=== PATIENT | male | born 1965 | race Caucasian/White ===

== ENCOUNTER 2020-05-12 12:16 | Emergency (ER) | payer BC, SELFPAY ==
[2020-05-12 12:38] VITALS: BP 121/78; PULSE 66; RESP 18; TEMP 37; O2SAT 98; BMI 25.7
--- NOTE | 2020-05-12 12:54 | ED_ITS ---
HPI - Extremity Problem General Chief complaint: Extremity Injury, Upper Stated complaint: Rib Pain Time Seen by Provider: 05/12/20 12:54 Source: patient Mode of arrival: ambulatory Limitations: no limitations History of Present Illness HPI Narrative: Otherwise healthy 54-year-old male who presents with complaint of left lateral inferior rib pain as well as left upper abdominal pain after he reach for something and felt like a pulling sensation in that area. In addition to this he does report that he fell from a ladder about 6 ft onto that area 4 weeks ago and afterwards he was evaluated at urgent care but at that time he did not tell about the injury to the abdomen only concern was his right forearm as he was swollen and uncomfortable ?I was pretty sure was broken..... And forgot about the other injury.. He did not suffer any head neck injury. States he did have a bruise at the site and he went away. There is no nausea vomiting or diarrhea. There is no fever. There is no hematuria/rectal bleeding. There is no weight loss or gain. Pain on the right forearm has fully resolved. Pain on the left side was improving until he did this today. Pain Consistency: constant Location: left Associated symptoms: denies other symptoms Related Data Previous Rx's Medication Instructions Recorded cyclobenzaprine 10 mg PO TID PRN #20 tab 05/12/20 Allergies Allergy/AdvReac Type Severity Reaction Status Date / Time No Known Allergies Allergy Verified 05/12/20 12:56 Review of Systems Review of Systems: Constitutional: No Weight loss, No Fever, No Chills, No Night Sweats, No Fatigue, No Malaise ENT/Mouth: No Hearing loss, No Ear Pain, No Nasal Congestion, No Sinus Pain, No Hoarseness, No sore throat, No Rhinorrhea, No Swallowing Difficulty Eyes: No Eye Pain, No Swelling, No Redness, No Foreign Body, No Discharge, No Vision Changes Cardiovascular: No Chest Pain, No SOB, No Dyspnea on Exertion, No Orthopnea, No Edema, No Palpitations Respiratory: No Cough, No Sputum, No Wheezing, No Smoke Exposure, No Dyspnea Gastrointestinal: No Nausea, No Vomiting, No Diarrhea, No Constipation, No Hematochezia, No Melena Genitourinary: no irregular bleeding, No Dysuria, No Urinary Frequency, No Hematuria, No Urinary Incontinence, No Urgency, No Flank Pain, No Urinary Flow Changes, No Hesitancy Musculoskeletal: No joint pain, No Myalgias, No Joint Swelling Skin: No Skin Lesions, No rash Neuro: No Weakness, No Numbness, No Paresthesias, No Loss of Consciousness, No Dizziness, No Headache Psych: No Social Issues Heme/Lymph: No Bruising, No Bleeding,No Lymphadenopathy Endocrine: No Polyuria, No Polydipsia, No Temperature Intolerance Yes all other systems are reviewed and are negative [facility] Past Medical History Attestation statement: The following information was validated with the patient. Medical History (Updated 05/12/20 @ 15:28 by Carlos Reeder NP) No known health problems Social History Social History Alcohol intake: never Smoking Status: Never smoker Use of substances other than those prescribed or required for medical reasons: No Advance Directives: No Advance Directives Information Provided: No Physical Exam Vital Signs: Vital Signs: Vital Signs Temp Pulse Resp BP Pulse Ox 05/12/20 14:00 97.7 F 67 14 121/80 99 05/12/20 12:38 98.6 F 66 18 121/78 98 Body Mass Index 25.7 Reviewed Const: General: cooperative and healthy appearing; No acute distress or intoxicated appearing Nutritional Appearance: average body habitus Orientation/consciousness: patient oriented x3 HENMT: Head: Yes normal to inspection Ears: hearing grossly normal bilaterally Eyes: General: appearance normal, both eyes and all related structures Visual Garza: normal visual garza by confrontation Neck: Neck: Yes normal visual inspection, No positive Brudzinski's sign, No positive Kernig's sign and No tender Thyroid: Thyroid normal Chest: Chest palpation & inspection: normal inspection of the chest Chest/axillae images: 1. Soft tissue tender to palpation. No obvious ecchymosis/open skin area/rash. Resp: Effort & Inspection: normal respiratory effort Cardio: Jugular venous distension: no JVD GI: Inspection: Yes normal to inspection Percussion: Yes normal to percussion Auscultation: normal bowel sounds : General: Yes no CVA tenderness Back/Spine/Pelvis: Back: no CVA tenderness Skin: General skin exam: no rashes or lesions noted Neuro: General: patient oriented x3 Extrem: General: Yes normal to inspection Course Course Course Narrative: Labs overall reassuring. CT findings as noted without acute intra-abdominal process. X-rays negative no acute rib fracture. Incidental findings of Lobulated lesion right lung base, suspicious. Recommend dedicated CT chest with contrast as outpatient. He is patient of Dr. Ruano he will follow up in outpatient basis regarding this. He feels comfortable plan stable for discharge. MDM - Extremity (Nontraumatic) MDM Narrative Medical decision making narrative: Differential diagnosis include but not limited to contusion, muscle strain of the chest wall/abdomen, rib fracture, splenic lac. Lab Data Result diagrams: 05/12/20 13:23 05/12/20 13:22 Labs: Lab Results 05/12/20 05/12/20 05/12/20 Range/Units 13:22 13:23 13:23 WBC 6.1 (4.8-10.8) X10*3/uL RBC 5.06 (4.60-5.80) X10*6/uL Hgb 15.8 (14.0-18.0) g/dl Hct 46.5 (42-52) % MCV 91.9 (80-98) fL MCH 31.2 (27.0-33.0) pg MCHC 34.0 (31.0-36.0) g/dl RDW 12.3 (11.0-16.0) % Plt Count 229 (160-400) X10*3/uL MPV 10.4 (9.4-12.4) fL Immature Gran % (Auto) 0.2 (0.0-0.4) % Neut % (Auto) 68.8 (45-73) % Lymph % (Auto) 17.8 L (20-40) % [place] % (Auto) 10.6 (2-11) % Eos % (Auto) 2.1 (0-4) % Baso % (Auto) 0.5 (0-2) % Lymph # (Auto) 1.1 L (1.2-4.9) X10*3/uL [place] # (Auto) 0.7 (0.1-1.2) X10*3/uL Eos # (Auto) 0.1 (0.0-0.4) X10*3/uL Baso # (Auto) 0.0 (0.0-0.2) X10*3/uL Abs Immat Gran (auto) 0.01 (0.00-0.03) X10*3/uL Absolute Neuts (auto) 4.2 (2.0-8.3) X10*3/uL Absolute Nucleated RBC 0.000 (0.0-0.012) X10*3/uL Nucleated RBC % (auto) 0.0 (0.0-0.2) /100WBC PT 12.0 (10.8-13.0) SEC INR 1.0 (0.9-1.1) APTT 36.0 (24.1-38.0) SEC Sodium 136 (135-145) mmol/L Potassium 4.7 (3.3-5.1) mmol/l Chloride 99 (96-108) mmol/L Carbon Dioxide 29 (22-29) mmol/L Anion Gap 13 (12-20) BUN 21 H (9-16) mg/dL Creatinine 0.97 (0.5-1.4) mg/dL Estim Creat Clear Calc 73.7 Estimated GFR > 60 Random Glucose 109 (60-115) mg/dL Calcium 9.4 (8.4-10.2) mg/dL Total Bilirubin 0.4 (0.0-1.0) mg/dL AST 28 (5-37) U/L ALT 30 (0-40) U/L Alkaline Phosphatase 73 (39-117) U/L Total Protein 7.4 (6.5-8.0) g/dL Albumin 4.8 (3.5-5.0) g/dL Urine Color Urine Appearance Urine pH (5.0-8.0) Ur Specific [place] (1.005-1.025) Urine Protein (NEG-TRACE) MG/DL Urine Glucose (UA) (NEG) MG/DL Urine Ketones (NEG) MG/DL Urine Blood (NEG) Urine Nitrite (NEG) Ur Leukocyte Esterase (NEG) Urine RBC (0) /HPF Urine WBC (0-4) /HPF Ur Squamous Epith Cells /LPF Urine Bacteria /LPF 05/12/20 Range/Units 13:34 WBC (4.8-10.8) X10*3/uL RBC (4.60-5.80) X10*6/uL Hgb (14.0-18.0) g/dl Hct (42-52) % MCV (80-98) fL MCH (27.0-33.0) pg MCHC (31.0-36.0) g/dl RDW (11.0-16.0) % Plt Count (160-400) X10*3/uL MPV (9.4-12.4) fL Immature Gran % (Auto) (0.0-0.4) % Neut % (Auto) (45-73) % Lymph % (Auto) (20-40) % [place] % (Auto) (2-11) % Eos % (Auto) (0-4) % Baso % (Auto) (0-2) % Lymph # (Auto) (1.2-4.9) X10*3/uL [place] # (Auto) (0.1-1.2) X10*3/uL Eos # (Auto) (0.0-0.4) X10*3/uL Baso # (Auto) (0.0-0.2) X10*3/uL Abs Immat Gran (auto) (0.00-0.03) X10*3/uL Absolute Neuts (auto) (2.0-8.3) X10*3/uL Absolute Nucleated RBC (0.0-0.012) X10*3/uL Nucleated RBC % (auto) (0.0-0.2) /100WBC PT (10.8-13.0) SEC INR (0.9-1.1) APTT (24.1-38.0) SEC Sodium (135-145) mmol/L Potassium (3.3-5.1) mmol/l Chloride (96-108) mmol/L Carbon Dioxide (22-29) mmol/L Anion Gap (12-20) BUN (9-16) mg/dL Creatinine (0.5-1.4) mg/dL Estim Creat Clear Calc Estimated GFR Random Glucose (60-115) mg/dL Calcium (8.4-10.2) mg/dL Total Bilirubin (0.0-1.0) mg/dL AST (5-37) U/L ALT (0-40) U/L Alkaline Phosphatase (39-117) U/L Total Protein (6.5-8.0) g/dL Albumin (3.5-5.0) g/dL Urine Color YELLOW Urine Appearance CLEAR Urine pH 6.0 (5.0-8.0) Ur Specific [place] 1.020 (1.005-1.025) Urine Protein NEG (NEG-TRACE) MG/DL Urine Glucose (UA) NEG (NEG) MG/DL Urine Ketones NEG (NEG) MG/DL Urine Blood 1+ H (NEG) Urine Nitrite NEG (NEG) Ur Leukocyte Esterase NEG (NEG) Urine RBC 0-2 (0) /HPF Urine WBC 0 (0-4) /HPF Ur Squamous Epith Cells NONE /LPF Urine Bacteria NONE /LPF Imaging Data CT scan - abdomen: Radiologist's impression: [address] [address] [address] Scan Report Signed Patient: Isidoro Gonzalez LMR#: [id number] : 1965Acct:[id number] Age/Sex: 54 / MADM Date: 05/12/20 Loc: HO.ED Attending Dr: Ordering Physician: Carlos Reeder NP Date of Service: 05/12/20 Procedure(s): CT abdomen pelvis w con Accession Number(s): [id number] cc: Carlos Reeder 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 Status post fall. COMPARISON: None TECHNIQUE: Multidetector volumetric images were obtained from the superior aspect of the liver through the pubic symphysis following administration 85 mL of Omnipaque 350 intravenous contrast. Sagittal and coronal reformatted images were obtained on the technologist's workstation. Oral contrast: No This CT examination was performed using dose optimization techniques as appropriate, variously including the following: *Automated exposure control *Adjustment of mA and/or kV according to patient size (this includes techniques or standardized protocols for targeted exams where dose is matched to indication/reason for exam; i.e. extremities or head) *Use of iterative reconstruction technique DLP: 451 mGy-cm FINDINGS: LUNG BASES: There is platelike atelectasis in the lingula. There is a 1.8 cm lobulated mass right lung base. Heart size is normal. LIVER, GALLBLADDER, AND BILIARY TREE: The liver is normal in size, shape, and attenuation. No focal hepatic lesion or biliary ductal dilatation is present. The gallbladder is unremarkable with no evidence of radiopaque gallstones, gallbladder wall thickening, or obvious pericholecystic inflammatory changes. PANCREAS: Unremarkable. SPLEEN: Unremarkable. ADRENAL GLANDS: Unremarkable. KIDNEYS AND URETERS: The kidneys are normal in size, shape, and attenuation. No hydronephrosis, hydroureter, or calculi seen. No perinephric stranding. There is a 6 mm cyst upper pole left kidney BLADDER: Unremarkable. GASTROINTESTINAL TRACT: There is scattered stool and gas and articular seen throughout the colon without distention or diverticulitis. The small bowel loops are normal caliber. Appendix is normal caliber. ABDOMINAL WALL: No significant hernia is appreciated. LYMPH NODES: Normal. VASCULAR: Unremarkable. PELVIC VISCERA: The prostate gland is normal size. No abnormal pelvic mass or lymph node seen. OSSEOUS STRUCTURES: There is mild ventral spondylosis. No lytic or sclerotic process seen. No visible fracture seen. CT/CT abdomen pelvis w con IMPRESSION: There is no visible fracture or dislocation seen involving the spine of the pelvis. The lower ribs are intact. Diverticulosis without diverticulitis. Lobulated lesion right lung base, suspicious. Recommend dedicated CT chest with contrast as outpatient. Dictated By:JEANINE INGRAM MD Signed By:<Electronically signed by JEANINE INGRAM MD in OV>05/12/20 1509 DD/ 1415 TD/TT: [employer] Dispatcher: [place] Chest x-ray: Radiologist's impression: [address] [address] XRay Report Signed Patient: Isidoro Gonzalez LMR#: [id number] : 1965Acct:[id number] Age/Sex: 54 / MADM Date: 05/12/20 Loc: HO.ED Attending Dr: Ordering Physician: Carlos Reeder NP Date of Service: 05/12/20 Procedure(s): XR ribs LT min 3V w CXR1V Accession Number(s): [id number] cc: Carlos Reeder NP~ EXAMINATION: XR RIBS, LEFT CLINICAL INFORMATION: Trauma. Pain. COMPARISON: None TECHNIQUE: 3 views of the left ribs and one view of the chest were obtained. FINDINGS: Lungs are clear. No consolidation, pneumothorax, or pleural effusion. The cardiomediastinal silhouette and pulmonary vasculature are normal. Osseous structures are unremarkable. Ribs are intact. No fractures are identified. XR/XR ribs LT min 3V w CXR1V IMPRESSION: Unremarkable examination. Dictated By:JUANPABLO WEBB MD Signed By:<Electronically signed by JUANPABLO WEBB MD in OV>05/12/20 1316 DD/ 1257 TD/TT: [employer] Dispatcher: SHARON Discharge Plan Discharge Clinical Impression: Chest wall contusion, Lung nodule Patient Disposition: Home, Self-Care Instructions: Contusion in Adults (ED), Pulmonary Nodules (ED) Additional Instructions: Warm compresses Gentle stretching Medications prescribed Return if any concerns or symptoms otherwise follow up with outpatient basis as discussed Copy CT scan was provided to is very important that you follow-up with your primary care doctor to have the CT scan of her chest Thank you Prescriptions: New cyclobenzaprine 10 mg tablet 10 mg PO TID PRN (Reason: muscle spasm) Qty: 20 RF: 0 Referrals: Ángel Ruano MD [Primary Care Provider] - 2 weeks
--- NOTE | 2020-05-12 12:57 | XR_ITS ---
EXAMINATION: XR RIBS, LEFT CLINICAL INFORMATION: Trauma. Pain. COMPARISON: None TECHNIQUE: 3 views of the left ribs and one view of the chest were obtained. FINDINGS: Lungs are clear. No consolidation, pneumothorax, or pleural effusion. The cardiomediastinal silhouette and pulmonary vasculature are normal. Osseous structures are unremarkable. Ribs are intact. No fractures are identified. XR/XR ribs LT min 3V w CXR1V IMPRESSION: Unremarkable examination.
[2020-05-12] MEDS: 0.9 % Sodium Chloride 500 ML 1000 ML IV (13:35)
[2020-05-12 13:51] LABS: MANUAL DIFF FLAG NO
[2020-05-12 13:53] LABS: Basophils Percent Auto 0.5 % (0-2); Eosinophils Absolute Auto 0.1 X10*3/uL (0.0-0.4); Eosinophils Percent Auto 2.1 % (0-4); Hematocrit 46.5 % (42-52); Hemoglobin 15.8 g/dl (14.0-18.0); Imm Gran Abs Auto 0.01 X10*3/uL (0.00-0.03); Imm Gran Pct Auto 0.2 % (0.0-0.4); Lymphocytes Absolute Auto 1.1 X10*3/uL (1.2-4.9); Lymphocytes Percent Auto 17.8 % (20-40); Mean Corpuscular Hemoglobin 31.2 pg (27.0-33.0); Mean Corpuscular Volume 91.9 fL (80-98); Mean Platelet Volume 10.4 fL (9.4-12.4); Monocytes Absolute Auto 0.7 X10*3/uL (0.1-1.2); Monocytes Percent Auto 10.6 % (2-11); Neutrophils Absolute Auto 4.2 X10*3/uL (2.0-8.3); Neutrophils Percent Auto 68.8 % (45-73); Platelet Count 229 X10*3/uL (160-400); Red Blood Count 5.06 X10*6/uL (4.60-5.80); Red Cell Distribution Width 12.3 % (11.0-16.0); White Blood Count 6.1 X10*3/uL (4.8-10.8)
[2020-05-12 13:54] LABS: Glucose Urine UA NEG (NEG); Leukocyte Esterase Urine NEG (NEG); Nitrite Urine NEG (NEG); Urine Blood 1+ (NEG); Urine Ketones NEG (NEG); Urine Protein NEG (NEG-TRACE)
[2020-05-12 13:55] LABS: Appearance Urine CLEAR; Color Urine YELLOW
[2020-05-12 14:00] VITALS: BP 121/80; PULSE 67; RESP 14; TEMP 36.5; O2SAT 99
--- NOTE | 2020-05-12 14:15 | CT_ITS ---
EXAMINATION: CT ABDOMEN AND PELVIS WITH CONTRAST CLINICAL INFORMATION: Pain. Status post fall. COMPARISON: None TECHNIQUE: Multidetector volumetric images were obtained from the superior aspect of the liver through the pubic symphysis following administration 85 mL of Omnipaque 350 intravenous contrast. Sagittal and coronal reformatted images were obtained on the technologist's workstation. Oral contrast: No This CT examination was performed using dose optimization techniques as appropriate, variously including the following: *Automated exposure control *Adjustment of mA and/or kV according to patient size (this includes techniques or standardized protocols for targeted exams where dose is matched to indication/reason for exam; i.e. extremities or head) *Use of iterative reconstruction technique DLP: 451 mGy-cm FINDINGS: LUNG BASES: There is platelike atelectasis in the lingula. There is a 1.8 cm lobulated mass right lung base. Heart size is normal. LIVER, GALLBLADDER, AND BILIARY TREE: The liver is normal in size, shape, and attenuation. No focal hepatic lesion or biliary ductal dilatation is present. The gallbladder is unremarkable with no evidence of radiopaque gallstones, gallbladder wall thickening, or obvious pericholecystic inflammatory changes. PANCREAS: Unremarkable. SPLEEN: Unremarkable. ADRENAL GLANDS: Unremarkable. KIDNEYS AND URETERS: The kidneys are normal in size, shape, and attenuation. No hydronephrosis, hydroureter, or calculi seen. No perinephric stranding. There is a 6 mm cyst upper pole left kidney BLADDER: Unremarkable. GASTROINTESTINAL TRACT: There is scattered stool and gas and articular seen throughout the colon without distention or diverticulitis. The small bowel loops are normal caliber. Appendix is normal caliber. ABDOMINAL WALL: No significant hernia is appreciated. LYMPH NODES: Normal. VASCULAR: Unremarkable. PELVIC VISCERA: The prostate gland is normal size. No abnormal pelvic mass or lymph node seen. OSSEOUS STRUCTURES: There is mild ventral spondylosis. No lytic or sclerotic process seen. No visible fracture seen. CT/CT abdomen pelvis w con IMPRESSION: There is no visible fracture or dislocation seen involving the spine of the pelvis. The lower ribs are intact. Diverticulosis without diverticulitis. Lobulated lesion right lung base, suspicious. Recommend dedicated CT chest with contrast as outpatient.
[2020-05-12 14:16] LABS: Alanine Aminotransferase 30 U/L (0-40); Albumin Level 4.8 g/dL (3.5-5.0); Alkaline Phosphatase 73 U/L (39-117); Anion Gap 13 (12-20); Aspartate Amino Transferase 28 U/L (5-37); Bilirubin Total 0.4 mg/dL (0.0-1.0); Blood Urea Nitrogen 21 mg/dL (9-16); Calcium 9.4 mg/dL (8.4-10.2); Carbon Dioxide 29 mmol/L (22-29); Chloride 99 mmol/L (96-108); Creatinine Clr Calc Pharmacy 73.7; Estimated Glomerular Filt Rate > 60; Glucose Random 109 mg/dL (60-115); Potassium 4.7 mmol/l (3.3-5.1); Sodium 136 mmol/L (135-145); Total Protein 7.4 g/dL (6.5-8.0)
[2020-05-12 14:20] LABS: RBC Urine 0-2 /HPF (0); WBC Urine 0 /HPF (0-4)
[2020-05-12] MEDS: iohexoL 350 MG/ML 100 ML INFUS..BTL 85 ML IV (14:42)
--- NOTE | 2020-05-12 15:06 | PC.NURSE ---
iv fluids infused w/o apparent incident
== END 2020-05-12 16:06 | disposition home or self-care (01) ==
PROVIDERS: Nurse Practitioner Primary Care; Emergency Provider Emergency Medicine; PCP Internal Medicine
DX: S20.213A Contusion of bilateral front wall of thorax, initial encounter (principal); R07.81 Pleurodynia; R91.1 Solitary pulmonary nodule; R10.9 Unspecified abdominal pain; W11.XXXA Fall on and from ladder, initial encounter; Y93.9 Activity, unspecified; Y92.89 Other specified places as the place of occurrence of the external cause; Y99.9 Unspecified external cause status
CPT/HCPCS: 36415; 71101; 74177; 80053; 81001; 85025; 85610; 85730; 99284; Q9967

== ENCOUNTER 2020-08-02 07:01 | Outpatient (REF) | payer BC, SELFPAY ==
[2020-08-02 07:41] LABS: MANUAL DIFF FLAG NO
[2020-08-02 07:43] LABS: Urine Cytology See Pathology rpt
[2020-08-02 07:51] LABS: Basophils Percent Auto 0.6 % (0-2); Eosinophils Absolute Auto 0.2 X10*3/uL (0.0-0.4); Eosinophils Percent Auto 3.7 % (0-4); Hematocrit 45.8 % (42-52); Hemoglobin 15.4 g/dl (14.0-18.0); Imm Gran Abs Auto 0.01 X10*3/uL (0.00-0.03); Imm Gran Pct Auto 0.2 % (0.0-0.4); Lymphocytes Absolute Auto 1.3 X10*3/uL (1.2-4.9); Mean Corpuscular HGB Conc 33.6 g/dl (31.0-36.0); Mean Corpuscular Volume 92.2 fL (80-98); Mean Platelet Volume 10.3 fL (9.4-12.4); Monocytes Absolute Auto 0.5 X10*3/uL (0.1-1.2); Monocytes Percent Auto 9.9 % (2-11); Neutrophils Absolute Auto 3.4 X10*3/uL (2.0-8.3); Neutrophils Percent Auto 62.6 % (45-73); Platelet Count 210 X10*3/uL (160-400); Red Blood Count 4.97 X10*6/uL (4.60-5.80); Red Cell Distribution Width 12.5 % (11.0-16.0); White Blood Count 5.4 X10*3/uL (4.8-10.8)
[2020-08-02 08:06] LABS: Alanine Aminotransferase 32 U/L (0-40); Albumin Level 4.5 g/dL (3.5-5.0); Alkaline Phosphatase 57 U/L (39-117); Anion Gap 10 (12-20); Aspartate Amino Transferase 24 U/L (5-37); Bilirubin Total 0.4 mg/dL (0.0-1.0); Blood Urea Nitrogen 23 mg/dL (9-16); Calcium 8.9 mg/dL (8.4-10.2); Carbon Dioxide 31 mmol/L (22-29); Chloride 105 mmol/L (96-108); Cholesterol 200 mg/dL; Estimated Glomerular Filt Rate > 60; Glucose Fasting 110 mg/dL (60-99); HDL Cholesterol 61 mg/dL; LDL Cholesterol Calculated 126 mg/dl; Potassium 4.6 mmol/l (3.3-5.1); Sodium 141 mmol/L (135-145); Total Protein 6.6 g/dL (6.5-8.0); Triglycerides 66 mg/dL
[2020-08-02 08:28] LABS: Prostate Specific Antigen Scr 0.77 ng/mL (<0.05-4.0); TSH reflex Free T4 1.14 mIU/mL (0.32-4.0)
[2020-08-02 08:38] LABS: Glucose Urine UA NEG (NEG); Leukocyte Esterase Urine NEG (NEG); Nitrite Urine NEG (NEG); Specific Gravity - Urine 1.025 (1.005-1.025); Urine Blood 1+ (NEG); Urine Ketones NEG (NEG); Urine Protein NEG (NEG-TRACE)
[2020-08-02 08:54] LABS: Appearance Urine CLEAR; Color Urine YELLOW
[2020-08-02 09:19] LABS: Mucus Urine 1+ /LPF; WBC Urine 0-2 /HPF (0-4)
== END 2020-08-02 07:02 | disposition home or self-care (01) ==
LOC: HO.LAB 07:01
PROVIDERS: Visit Provider Internal Medicine
DX: Z00.00 Encounter for general adult medical examination without abnormal findings (principal); I10 Essential (primary) hypertension; E78.00 Pure hypercholesterolemia, unspecified; Z12.5 Encounter for screening for malignant neoplasm of prostate
CPT/HCPCS: 36415; 80053; 80061; 81001; 81003; 84153; 84443; 85025; 88112

== ENCOUNTER 2021-10-17 06:09 | Outpatient (REF) | payer BC, SELFPAY ==
--- NOTE | ~2021-10-17 | XR_ITS ---
EXAMINATION: XR SHOULDER, LEFT CLINICAL INFORMATION: Pain COMPARISON: None TECHNIQUE: AP external rotation, Grashey, scapular Y, and axillary views of the left shoulder. FINDINGS: No fracture or dislocation. The glenohumeral joint is well aligned. The acromioclavicular joint is intact with mild hypertrophic degenerative change. The visualized lung is clear. The visualized ribs are intact. XR/XR shoulder LT min 2V IMPRESSION: Mild degenerative change of the left acromioclavicular joint.
--- NOTE | ~2021-10-17 | XR_ITS ---
EXAMINATION: XR CHEST CLINICAL INFORMATION: Nonspecific finding of the lungs COMPARISON: 05/12/2020 TECHNIQUE: 2 views of the chest were obtained. FINDINGS: The lungs are well expanded. There is no focal consolidation, edema, or effusion. No pneumothorax. The cardiomediastinal silhouette is within normal limits. No acute osseous abnormality. Mild degenerative changes of the spine. XR/XR chest 2V IMPRESSION: Clear lungs.
[2021-10-17 06:34] LABS: MANUAL DIFF FLAG NO
[2021-10-17 07:22] LABS: Basophils Percent Auto 0.8 % (0-2); Eosinophils Absolute Auto 0.1 X10*3/uL (0.0-0.4); Eosinophils Percent Auto 3.1 % (0-4); Hematocrit 45.7 % (42.0-52.0); Hemoglobin 15.7 g/dl (14.0-18.0); Imm Gran Abs Auto 0.01 X10*3/uL (0.00-0.03); Imm Gran Pct Auto 0.3 % (0.0-0.4); Lymphocytes Absolute Auto 1.1 X10*3/uL (1.2-4.9); Lymphocytes Percent Auto 29.4 % (20-40); Mean Corpuscular HGB Conc 34.4 g/dl (31.0-36.0); Mean Corpuscular Hemoglobin 31.5 pg (27.0-33.0); Mean Corpuscular Volume 91.6 fL (80.0-98.0); Mean Platelet Volume 10.4 fL (9.4-12.4); Monocytes Absolute Auto 0.6 X10*3/uL (0.1-1.2); Monocytes Percent Auto 14.6 % (2-11); Neutrophils Percent Auto 51.8 % (45-73); Platelet Count 216 X10*3/uL (160-400); Red Blood Count 4.99 X10*6/uL (4.60-5.80); White Blood Count 3.8 X10*3/uL (4.8-10.8)
[2021-10-17 07:23] LABS: Appearance Urine CLEAR; Color Urine YELLOW; Glucose Urine UA NEG (NEG); Leukocyte Esterase Urine NEG (NEG); Nitrite Urine NEG (NEG); Specific Gravity - Urine 1.025 (1.005-1.025); UACC Culture Trigger NO; Urine Blood 1+ (NEG); Urine Ketones NEG (NEG); Urine Protein NEG (NEG-TRACE)
[2021-10-17 07:52] LABS: Alanine Aminotransferase 44 U/L (0-40); Albumin Level 4.4 g/dL (3.5-5.0); Alkaline Phosphatase 58 U/L (39-117); Anion Gap 10 (12-20); Aspartate Amino Transferase 32 U/L (5-37); Bilirubin Total 0.8 mg/dL (0.0-1.0); Blood Urea Nitrogen 21 mg/dL (9-16); Calcium 9.7 mg/dL (8.4-10.2); Carbon Dioxide 29 mmol/L (22-29); Chloride 104 mmol/L (96-108); Cholesterol 219 mg/dL; Estimated Glomerular Filt Rate > 60; Glucose Fasting 98 mg/dL (60-99); HDL Cholesterol 64 mg/dL; LDL Cholesterol Calculated 143 mg/dl; Potassium 4.9 mmol/L (3.3-5.1); Sodium 138 mmol/L (135-145); Total Protein 6.5 g/dL (6.5-8.0); Triglycerides 60 mg/dL
[2021-10-17 07:56] LABS: Mucus Urine TRACE /LPF; WBC Urine 0-2 /HPF (0-4)
[2021-10-17 08:17] LABS: Prostate Specific Antigen Scr 0.54 ng/mL (<0.05-4.0)
== END 2021-10-17 06:10 | disposition home or self-care (01) ==
LOC: HO.LAB 06:09
PROVIDERS: PCP Internal Medicine; Visit Provider Internal Medicine
DX: Z00.00 Encounter for general adult medical examination without abnormal findings (principal); Z12.5 Encounter for screening for malignant neoplasm of prostate; R91.8 Other nonspecific abnormal finding of lung field; M25.512 Pain in left shoulder; E55.9 Vitamin D deficiency, unspecified
CPT/HCPCS: 36415; 71046; 73030; 80053; 80061; 81001; 82306; 84153; 84443; 85025

== ENCOUNTER 2022-10-06 16:46 | Outpatient (AMB) | payer BC, SELFPAY ==
--- NOTE | 2022-10-06 16:55 | A.OFFPC_ITS ---
<Statement entered by Aleah Zhu MD - 11/19/24 15:12> This note has been administratively?closed. 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 Accompanied by: Self / Same As Patient Allergies No Known Allergies Allergy (Verified 10/06/22 17:09) Medication List - Last Reconciled 10/06/22 by Ángel Ruano MD No Known Home Meds Tobacco use date assessed: 10/06/22 HPI Annual PE HPI Details Patient comes in today for his annual physical examination States that he has been feeling depressed for the past 10 months Relates that this is mostly due to his 4 y/o granddaughter currently suffering from a rare form of cancer States that she is not doing well in terms of response to treatment He denies any headaches or dizziness Denies any chest pains, no shortness of breath No nausea/vomiting, no abdominal pain States that he has been taking OTC laxatives at night to help regulate his bowel movements Denies any acute urinary symptoms Has been taking some low dose edible marijuana at night to help him sleep Had his screening colonoscopy done back in 2016; will be due for repeat colonoscopy in 10 years (2026) [facility] Medical History (Updated 10/07/22 @ 03:30 by Ángel Ruano MD) Constipation Hematuria, microscopic Overweight (BMI 25.0-29.9) Pure hypercholesterolemia Surgical History History of colonoscopy History of hand surgery History of inguinal hernia repair Family History Father No problems noted. Mother Hypertension Social History Housing: House Alcohol intake: former Patient Tobacco Use Status: Former Tobacco user e-Cigarette/Vaping Use: Never Used Second Hand Smoke Exposure: Yes service: No Current occupational status: employed Questionnaire PHQ-9 Over the last 2 weeks, how often have you been bothered by any of the following problems? 1. Little interest or pleasure in doing things: several days 2. Feeling down, depressed, or hopeless: not at all 3. Trouble falling or staying asleep, or sleeping too much: several days 4. Feeling tired or having little energy: not at all 5. Poor appetite or overeating: not at all 6. Feeling bad about yourself - or that you are a failure or have let yourself or your family down: not at all 7. Trouble concentrating on things, such as reading the newspaper or watching television: not at all 8. Moving or speaking so slowly that other people could have noticed. Or the opposite - being so fidgety or restless that you have been moving around a lot more than usual: not at all 9. Thoughts that you would be better off or of hurting yourself in some way: not at all Total score: 2 Depression Screening Interpretation: Positive Depression Screening Follow-up: Declines treatment 00388 - PHQ-9 Billing: Yes Source: Developed by Drs. Isidoro Schuler, Lynn Galarza, Swapnil Bates and colleagues, with an educational polina from [employer]. Thrive Questionnaire Declines Thrive assessment: No Date Thrive assessed: 10/04/21 I am a: Patient What is your living situation today?: I have a steady place to live Within the past 12 months, did the food you bought not last and you didn't have the money to get more?: Never true Within the past 12 months, did you worry whether your food would run out before you got money to buy more?: Never true Do you have trouble paying for medicines?: No Do you have trouble getting transportation to medical appointments?: No Do you have trouble paying your heating and electricity bill?: No Do you have trouble taking care of your child, family member or friend?: No Do you have trouble with day-to-day activities such as bathing, preparing meals, shopping, managing finances, etc.?: No Are you currently unemployed and looking for a job?: No Are you interested in more education?: No Currently or been in a relationship where the following occur: no concerns reported AUDIT C Alcohol Use Questionnaire (AUDIT-C) 1. How often do you have a drink containing alcohol?: Never 3. How often do you have six or more drinks on one occasion?: Never Total Score: 0 Score Reviewed/Action Taken: Yes GATO-7 AMB Questionnaire GATO-7 Date GATO - 7 assessed: 10/06/22 Feeling nervous, anxious, or on edge: 1 = Several days Not being able to stop or control worryin = Several days Worrying too much about different things: 1 = Several days Trouble relaxin = Several days Being so restless that it is hard to sit still: 1 = Several days Becoming easily annoyed or irritable: 0 = Not at all Feeling afraid as if something awful might happen: 1 = Several days Total GATO-7 score (0-4 normal; 5-9 mild; 10-14 moderate; 15-21 severe): 6 Source: Developed by Drs. Isidoro Schuler, Lynn Galarza, Swapnil Bates and colleagues, with an educational polina from [employer]. Review of Systems Const Denies chills, Reports difficulty sleeping (at times; using low dose edible marijuana when needed), Denies fatigue, Denies fever(s), Denies headache(s) and Denies malaise Eyes Denies blurry vision, Denies change in vision, Denies irritation and Denies itchy eyes ENT Denies dysphagia, Denies dizziness, Denies otalgia, Denies headache(s), Denies nasal congestion, Denies neck pain, Denies odynophagia and Denies sore throat Card Denies chest pain, Denies rapid heart rate, Denies irregular heart rhythm, Denies palpitations and Denies dyspnea Resp Denies chest congestion, Denies cough, Denies dyspnea and Denies wheezing GI Denies abdominal pain, Denies bloating, Denies change in bowel habits, Denies constipation, Denies dysphagia, Denies heartburn, Denies diarrhea, Denies nausea, Denies odynophagia and Denies vomiting Denies hematuria, Denies difficulty urinating, Denies dysuria, Denies testicular mass, Denies testicular pain, Denies urinary frequency, Denies urinary incontinence and Denies urinary urgency Musc Denies back pain, Denies arthralgias, Denies joint swelling, Denies muscle weakness and Denies neck pain Skin/Breast Denies change in pigmentation, Denies lesions, Denies rash and Denies unusual bruising Neuro Denies dizziness, Denies headache(s) and Denies paresthesias Psych Reports depression Endo Denies fatigue and Denies palpitations Aller/Immun Denies itchy eyes and Denies wheezing Physical exam (Primary Care) Vital Signs: Last Vital Signs Temp 97.3 F 10/06/22 16:56 Pulse 87 10/06/22 16:56 BP 122/76 10/06/22 16:56 Pulse Ox 99 10/06/22 16:56 Oxygen Delivery Method Room Air 10/06/22 16:56 BMI result Body Mass Index 26.4 Tobacco/Smoking Status: Tobacco use Status Tobacco use date assessed 10/06/22 10/06/22 16:59 Patient Tobacco Use Status Former Tobacco user 10/06/22 16:59 e-Cigarette/Vaping Use Never Used 10/06/22 16:59 PHQ-9: PHQ-9 Score PHQ-9: Total score 2 10/06/22 21:35 Depression Screening Interpretation: Positive Depression Screening Follow-up: Declines treatment Thrive Assessment: Date of Thrive Assessment Date Thrive assessed 10/04/21 10/06/22 16:59 Currently or been in a relationship where the following occur: no concerns reported Const General: no acute distress, alert and awake Orientation/consciousness: patient oriented x3 HENMT Head: Yes normocephalic and Yes atraumatic Ears: external ears normal, TM's normal bilaterally and EAC's normal General nose exam: No nasal discharge present Face and sinus: Yes normal facial exam and Yes sinuses nontender Teeth and gingiva: dentition normal Throat: Yes posterior oropharynx normal and Yes tonsils normal (no TP congestion) Eyes Eyelids: Yes eyelids normal Conjunctivae: conjunctivae normal Pupils: Equal, round and reactive pupils present EOM: EOMs intact bilaterally Neck Neck: Yes no lymphadenopathy and Yes supple Thyroid: Thyroid normal Resp Auscultation: clear to auscultation bilaterally, no rales and no wheezes Cardio Rate: regular rate Rhythm: regular rhythm Heart sounds: no murmurs GI Palpation (GI): Soft to palpation, nontender and No hepatosplenomegaly present Auscultation: normal bowel sounds General: Yes no CVA tenderness Back/Spine/Pelvis Back: no CVA tenderness Thoracic/Lumbar Spine: thoracic and lumbar spine normal to inspection Skin Lesions: no lesions Rashes: no rashes Neuro General: patient oriented x3, moves all extremities, no focal motor deficits and CN's II-XI intact bilaterally Cranial nerves: Yes Equal, round and reactive pupils present Cognition (Neuro): normal cognition Gait exam (Neuro): Normal gait present Extrem General: Yes no clubbing, cyanosis or edema Assessment and Plan Assessment & Plan (1) Annual physical exam: Code(s): Z00.00 - Encounter for general adult medical examination without abnormal findings Plan: Check labs Is up-to-date with his cancer screening - will be due for repeat colonoscopy in 2026 (2) Pure hypercholesterolemia: Code(s): E78.00 - Pure hypercholesterolemia, unspecified Plan: Reinforced low cholesterol diet Will recheck fasting lipids for follow up (3) Constipation: Code(s): K59.00 - Constipation, unspecified Qualifiers: Constipation type: unspecified constipation type Qualified Code(s): K59.00 - Constipation, unspecified Plan: Controlled Reinforced increased oral fluids and dietary fiber Takes OTC fiber supplements when needed (4) Depression: Code(s): F32.A - Depression, unspecified Qualifiers: Depression Type: reactive depression Qualified Code(s): F32.9 - Major depressive disorder, single episode, unspecified Plan: Is mostly related to his granddaughter being diagnosed with a rare form of cancer and her poor response to treatment lately States that he is able to manage and does not think he needs to be referred for counseling or start taking any Rx - feels that he has a good support system with his family and friends Is advised that he can call any time if he ever feels he needs help or would like to see or talk to somebody (5) Overweight (BMI 25.0-29.9): Code(s): E66.3 - Overweight Plan: Reinforced diet/exercise as tolerated/lose weight Plan To return in 1 year for his next annual physical examination Orders: Orders Comprehensive [place]. Panel Fast 10/06/22 E78.00 - Pure hypercholesterolemia, unspecified, Z00.00 - Encounter for general adult medical examination without abnormal findings Lipid Panel 10/06/22 E78.00 - Pure hypercholesterolemia, unspecified, Z00.00 - Encounter for general adult medical examination without abnormal findings Prostate Specific Antigen Scr 10/06/22 Z00.00 - Encounter for general adult medical examination without abnormal findings TSH reflex Free T4 10/06/22 E78.00 - Pure hypercholesterolemia, unspecified, Z00.00 - Encounter for general adult medical examination without abnormal findings Vitamin D 25-OH Total 10/06/22 E55.9 - Vitamin D deficiency, unspecified, Z00.00 - Encounter for general adult medical examination without abnormal findings Complete Blood Count Auto Diff 10/06/22 Z00.00 - Encounter for general adult medical examination without abnormal findings UA CC w/rflx Micro + Cult 10/06/22 R30.0 - Dysuria, Z00.00 - Encounter for general adult medical examination without abnormal findings Coding Level of Care Code Est Pt Prev Care 40-64y(68996) Diagnoses Annual physical exam Z00.00 Pure hypercholesterolemia E78.00 Constipation K59.00 Constipation type: unspecified constipation type Depression F32.9 Depression Type: reactive depression Overweight (BMI 25.0-29.9) E66.3
[2022-10-06 16:56] VITALS: BP 122/76; PULSE 87; TEMP 36.3; O2SAT 99; BMI 26.4
== END 2022-10-06 17:19 | disposition home or self-care (01) ==
LOC: HO.HMGH 16:46
PROVIDERS: PCP Internal Medicine; Visit Provider Internal Medicine
DX: Z00.00 Encounter for general adult medical examination without abnormal findings (principal); E78.00 Pure hypercholesterolemia, unspecified; K59.00 Constipation, unspecified; F32.9 Major depressive disorder, single episode, unspecified; E66.3 Overweight
CPT/HCPCS: 99396; 99499

== ENCOUNTER 2022-10-11 06:24 | Outpatient (REF) | payer BC, SELFPAY ==
[2022-10-11 06:33] LABS: MANUAL DIFF FLAG NO
[2022-10-11 07:49] LABS: Appearance Urine Clear; Color Urine Yellow; Glucose Urine UA Negative (Negative); Leukocyte Esterase Urine Negative (Negative); Nitrite Urine Negative (Negative); PH 5.5 (5.0-9.0); Specific Gravity - Urine 1.025 (1.005-1.025); UMIC TRIGGER UACC YES; Urine Blood Trace (Negative); Urine Ketones Negative (Negative); Urine Protein Negative (Neg-Trace)
[2022-10-11 07:54] LABS: Bacteria Urine None Seen (None Seen); Hyaline Casts Urine 0-2 /LPF (0-2); RBC Urine 0-2 /HPF (0-2); Squamous Epithelial Cell Urine 0-2 /HPF (0-2); WBC Urine 0-5 /HPF (0-5)
[2022-10-11 08:22] LABS: Basophils Percent Auto 0.8 % (0-2); Eosinophils Absolute Auto 0.1 X10*3/uL (0.0-0.4); Eosinophils Percent Auto 2.6 % (0-4); Hematocrit 46.1 % (42.0-52.0); Hemoglobin 15.4 g/dl (14.0-18.0); Imm Gran Abs Auto 0.01 X10*3/uL (0.00-0.03); Imm Gran Pct Auto 0.3 % (0.0-0.4); Lymphocytes Absolute Auto 1.2 X10*3/uL (1.2-4.9); Lymphocytes Percent Auto 31.7 % (20-40); Mean Corpuscular HGB Conc 33.4 g/dl (31.0-36.0); Mean Corpuscular Volume 92.8 fL (80.0-98.0); Mean Platelet Volume 10.8 fL (9.4-12.4); Monocytes Absolute Auto 0.5 X10*3/uL (0.1-1.2); Monocytes Percent Auto 13.5 % (2-11); Neutrophils Percent Auto 51.1 % (45-73); Platelet Count 200 X10*3/uL (160-400); Red Blood Count 4.97 X10*6/uL (4.60-5.80); Red Cell Distribution Width 13.1 % (11.0-16.0); White Blood Count 3.9 X10*3/uL (4.8-10.8)
[2022-10-11 08:40] LABS: Alanine Aminotransferase 41 U/L (0-40); Albumin Level 4.3 g/dL (3.5-5.0); Alkaline Phosphatase 64 U/L (39-117); Anion Gap 11 (12-20); Aspartate Amino Transferase 25 U/L (5-37); Bilirubin Total 0.5 mg/dL (0.0-1.0); Blood Urea Nitrogen 22 mg/dL (9-16); Calcium 9.3 mg/dL (8.4-10.2); Carbon Dioxide 28 mmol/L (22-29); Chloride 109 mmol/L (96-108); Cholesterol 204 mg/dL; Estimated Glomerular Filt Rate > 60; Glucose Fasting 107 mg/dL (60-99); HDL Cholesterol 65 mg/dL; LDL Cholesterol Calculated 125 mg/dl; Potassium 4.6 mmol/L (3.3-5.1); Sodium 143 mmol/L (135-145); Total Protein 6.3 g/dL (6.5-8.0); Triglycerides 73 mg/dL
[2022-10-11 08:47] LABS: Prostate Specific Antigen Scr 0.88 ng/mL (<0.05-4.0); TSH reflex Free T4 1.47 uIU/mL (0.32-4.0); Vitamin D 25-OH Total 34.9 ng/mL (>30)
== END 2022-10-11 06:25 | disposition home or self-care (01) ==
LOC: HO.LAB 06:24
PROVIDERS: PCP Internal Medicine; Visit Provider Internal Medicine
DX: Z00.00 Encounter for general adult medical examination without abnormal findings (principal); Z12.5 Encounter for screening for malignant neoplasm of prostate; E55.9 Vitamin D deficiency, unspecified; E78.00 Pure hypercholesterolemia, unspecified
CPT/HCPCS: 36415; 80053; 80061; 81001; 82306; 84153; 84443; 85025

== ENCOUNTER 2023-06-11 16:39 | Outpatient (AMB) | payer BC, SELFPAY ==
[2023-06-11 16:40] VITALS: BP 116/78; PULSE 59; O2SAT 97; BMI 26.1
--- NOTE | 2023-06-11 16:40 | A.OFFPC_ITS ---
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 Accompanied by: Self / Same As Patient Allergies No Known Allergies Allergy (Verified 06/11/23 17:20) Medication List - Last Reconciled 06/11/23 by Ángel Ruano MD No Known Home Meds Tobacco use date assessed: 06/11/23 Dental Screening Dental Screen Date: 06/11/23 Did you have a dental visit in the last 12 months?: Yes Did you have a dental problem in the last 6 months where you did not have access to dental care?: No Was dental information given to patient?: Patient has dentist HPI f/u on fmla paperwork HPI Details Patient comes in today for his follow up visit States that he is still feeling depressed (going on for about a year now) States that a large part of this is due to his 4 y/o granddaughter who recently from a rare form of rhabdomyosarcoma although he states that his depression seems to be slowly easing up lately He is recently also suspecting that he may have ADHD, as he feels that he's been having trouble focusing lately on most everything that he does Relates that he did not really have any trouble keeping up when he was going to school in the past but recalls struggling with reading comprehension often Would like to see if he can be referred for evaluation for ADHD or any other potential issues related to this States that he will also need new FMLA forms filled out to allow him to take time off from work when he needs to Adds that he will be taking some time off and going down to [place] for about 6 weeks - will be leaving at the end of July 2023 States that he is going to be using his sick leave for the time that he will be away and will need his FMLA forms filled out [place] He currently denies any headaches or dizziness Denies any chest pains, no shortness of breath No nausea/vomiting, no abdominal pain States that he has been taking OTC laxatives at night to help regulate his bowel movements He continues to take some low dose edible marijuana at night when needed to help him sleep [facility] Medical History Overweight (BMI 25.0-29.9) Hematuria, microscopic Constipation Pure hypercholesterolemia Surgical History History of inguinal hernia repair History of colonoscopy History of hand surgery Family History Father No problems noted. Mother Hypertension Housing: House Alcohol intake: former Patient Tobacco Use Status: Former Tobacco user e-Cigarette/Vaping Use: Never Used Second Hand Smoke Exposure: Yes service: No Current occupational status: employed Cognitive needs: No Hearing needs: No Vision needs: No Questionnaire PHQ-9 Over the last 2 weeks, how often have you been bothered by any of the following problems? 1. Little interest or pleasure in doing things: several days 2. Feeling down, depressed, or hopeless: not at all 3. Trouble falling or staying asleep, or sleeping too much: several days 4. Feeling tired or having little energy: not at all 5. Poor appetite or overeating: not at all 6. Feeling bad about yourself - or that you are a failure or have let yourself or your family down: not at all 7. Trouble concentrating on things, such as reading the newspaper or watching television: not at all 8. Moving or speaking so slowly that other people could have noticed. Or the opposite - being so fidgety or restless that you have been moving around a lot more than usual: not at all 9. Thoughts that you would be better off or of hurting yourself in some way: not at all Total score: 2 Depression Screening Interpretation: Positive Depression Screening Follow-up: Existing condition and Declines treatment Depression Screening Done: Yes 76234 - PHQ-9 Billing: Yes Source: Developed by Drs. Isidoro Schuler, Lynn Galarza, Swapnil Bates and colleagues, with an educational polina from [employer]. Thrive Questionnaire Date Thrive assessed: 06/11/23 I am a: Patient What is your living situation today?: I have a steady place to live Within the past 12 months, did the food you bought not last and you didn't have the money to get more?: Never true Within the past 12 months, did you worry whether your food would run out before you got money to buy more?: Never true Do you have trouble paying for medicines?: No Do you have trouble getting transportation to medical appointments?: No Do you have trouble paying your heating and electricity bill?: No Do you have trouble taking care of your child, family member or friend?: No Do you have trouble with day-to-day activities such as bathing, preparing meals, shopping, managing finances, etc.?: No Are you currently unemployed and looking for a job?: No Are you interested in more education?: No Please select the resources that you would like help with: None Currently or been in a relationship where the following occur: no concerns reported AUDIT C Alcohol Use Questionnaire (AUDIT-C) 1. How often do you have a drink containing alcohol?: Never 3. How often do you have six or more drinks on one occasion?: Never Total Score: 0 Score Reviewed/Action Taken: Yes GATO-7 AMB Questionnaire GATO-7 Date GATO - 7 assessed: 06/11/23 Feeling nervous, anxious, or on edge: 1 = Several days Not being able to stop or control worryin = Several days Worrying too much about different things: 1 = Several days Trouble relaxin = Several days Being so restless that it is hard to sit still: 1 = Several days Becoming easily annoyed or irritable: 0 = Not at all Feeling afraid as if something awful might happen: 1 = Several days Total GATO-7 score (0-4 normal; 5-9 mild; 10-14 moderate; 15-21 severe): 6 Source: Developed by Drs. Isidoro Schuler, Lynn Galarza, Swapnil Bates and colleagues, with an educational polina from [employer]. Review of Systems Const Reports difficulty sleeping (at times; using low dose edible marijuana when needed), Denies fatigue, Denies fever(s) and Denies headache(s) ENT Denies dysphagia, Denies dizziness, Denies otalgia, Denies headache(s), Denies neck pain, Denies odynophagia and Denies sore throat Card Denies chest pain, Denies rapid heart rate, Denies irregular heart rhythm, Denies palpitations and Denies dyspnea Resp Denies cough, Denies dyspnea and Denies wheezing GI Denies abdominal pain, Denies constipation, Denies dysphagia, Denies heartburn, Denies diarrhea, Denies nausea, Denies odynophagia and Denies vomiting Denies difficulty urinating, Denies dysuria and Denies urinary frequency Musc Denies back pain and Denies neck pain Skin/Breast Denies rash Neuro Denies dizziness, Denies headache(s) and Denies memory loss Psych Reports depression, Reports difficulty concentrating, Denies auditory hallucinations and Denies memory loss Endo Denies fatigue and Denies palpitations Aller/Immun Denies wheezing Physical exam (Primary Care) Vital Signs: Last Vital Signs Pulse 59 06/11/23 16:40 BP 116/78 06/11/23 16:40 Pulse Ox 97 06/11/23 16:40 Oxygen Delivery Method Room Air 06/11/23 16:40 BMI result Body Mass Index 26.1 Tobacco/Smoking Status: Tobacco use Status Tobacco use date assessed 06/11/23 06/11/23 16:42 Patient Tobacco Use Status Former Tobacco user 06/11/23 16:42 e-Cigarette/Vaping Use Never Used 06/11/23 16:42 PHQ-9: PHQ-9 Score PHQ-9: Total score 2 06/11/23 17:26 Depression Screening Interpretation: Positive Depression Screening Follow-up: Existing condition and Declines treatment Thrive Assessment: Date of Thrive Assessment Date Thrive assessed 06/11/23 06/11/23 16:42 Currently or been in a relationship where the following occur: no concerns reported Const General: no acute distress and alert HENMT Ears: TM's normal bilaterally and EAC's normal Throat: Yes posterior oropharynx normal and Yes tonsils normal (no TP congestion) Neck Neck: Yes no lymphadenopathy and Yes supple Thyroid: Thyroid normal Resp Auscultation: clear to auscultation bilaterally, no rales and no wheezes Cardio Rate: regular rate Rhythm: regular rhythm Heart sounds: no murmurs GI Palpation (GI): Soft to palpation and nontender Auscultation: normal bowel sounds General: Yes no CVA tenderness Back/Spine/Pelvis Back: no CVA tenderness Thoracic/Lumbar Spine: thoracic and lumbar spine normal to inspection Skin Rashes: no rashes Extrem General: Yes no clubbing, cyanosis or edema Assessment and Plan Assessment & Plan (1) Pure hypercholesterolemia: Code(s): E78.00 - Pure hypercholesterolemia, unspecified Plan: Patient is advised that his cholesterol levels back in September 2022 have improved slightly from his last year's numbers Reinforced low cholesterol diet (2) Constipation: Code(s): K59.00 - Constipation, unspecified Qualifiers: Constipation type: unspecified constipation type Qualified Code(s): K59.00 - Constipation, unspecified Plan: Controlled Reinforced increased oral fluids and dietary fiber States that he takes OTC fiber supplements when needed (3) Difficulty concentrating: Code(s): R41.840 - Attention and concentration deficit Plan: Per request, will refer him to the [facility] for neuropsychiatry evaluation and to help assess if he has ADD/ADHD or not (4) Depression: Code(s): F32.A - Depression, unspecified Qualifiers: Depression Type: reactive depression Qualified Code(s): F32.9 - Major depressive disorder, single episode, unspecified Plan: Is mostly related to his granddaughter being diagnosed with and subsequently passing away recently from a rare form of cancer (rhabdomyosarcoma) States that he has been able to manage this and does not think he needs to be referred for counseling or start on any Rx - feels that he has a good support system with his family and friends Is advised again that he can call any time if he ever feels he needs help or would like to see or talk to somebody (5) Overweight (BMI 25.0-29.9): Code(s): E66.3 - Overweight Plan: Reinforced diet/exercise as tolerated/lose weight Plan To return as scheduled in September 2023 for his next annual physical examination Patient is reminded to try to get his labs done before he comes in for his annual physical exam in September 2019 Orders: Orders Comprehensive [place]. Panel Fast 09/28/23 Z00.00 - Encounter for general adult medical examination without abnormal findings Prostate Specific Antigen 09/28/23 N40.0 - Benign prostatic hyperplasia without lower urinary tract symptoms, Z00.00 - Encounter for general adult medical examination without abnormal findings Vitamin D 25-OH Total 09/28/23 E55.9 - Vitamin D deficiency, unspecified, Z00.00 - Encounter for general adult medical examination without abnormal findings Complete Blood Count Auto Diff 09/28/23 Z00.00 - Encounter for general adult medical examination without abnormal findings Lipid Panel 09/28/23 E78.00 - Pure hypercholesterolemia, unspecified, Z00.00 - Encounter for general adult medical examination without abnormal findings TSH reflex Free T4 09/28/23 E78.00 - Pure hypercholesterolemia, unspecified, Z00.00 - Encounter for general adult medical examination without abnormal findings UA CC w/rflx Micro + Cult 09/28/23 R30.0 - Dysuria, Z00.00 - Encounter for general adult medical examination without abnormal findings Referrals Neuropsychiatry Referral F32.A - Depression, unspecified, R41.840 - Attention and concentration deficit Coding Level of Care Code Est Pt Level 4 (63220) Diagnoses Pure hypercholesterolemia E78.00 Constipation, unspecified constipation type K59.00 Constipation type: unspecified constipation type Difficulty concentrating R41.840 Reactive depression F32.9 Depression Type: reactive depression Overweight (BMI 25.0-29.9) E66.3
== END 2023-06-11 17:34 | disposition home or self-care (01) ==
PROVIDERS: PCP Internal Medicine; Visit Provider Internal Medicine
DX: E78.00 Pure hypercholesterolemia, unspecified (principal); K59.00 Constipation, unspecified; R41.840 Attention and concentration deficit; F32.9 Major depressive disorder, single episode, unspecified; E66.3 Overweight; Z68.26 Body mass index [BMI] 26.0-26.9, adult
CPT/HCPCS: 99214

== ENCOUNTER 2023-10-11 10:03 | Outpatient (AMB) | payer BC, SELFPAY ==
--- NOTE | 2023-10-11 10:13 | A.OFFPC_ITS ---
Vital Signs 10/11/23 10:15 Height 5 ft 4 in Weight 149 lb 2 oz BMI 25.6 BP 120/72 Blood Pressure Location Lt brachial Position Sitting Pulse 68 Pulse Source Pulse Oximeter Pulse Oximetry (%) 95 Oxygen Delivery Method Room Air Intake Visit Reasons: PE Intake Note: Patient is here today for a physical. 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: Not Required per policy Accompanied by: Self / Same As Patient Allergies No Known Allergies Allergy (Verified 10/11/23 10:15) Medication List - Last Reconciled 10/11/23 by Ángel Ruano MD No Known Home Meds Tobacco use date assessed: 10/11/23 Dental Screening Dental Screen Date: 10/11/23 Did you have a dental visit in the last 12 months?: Yes Did you have a dental problem in the last 6 months where you did not have access to dental care?: No Was dental information given to patient?: Patient has dentist HPI PE HPI Details Patient comes in today for his annual physical examination States that he has been experiencing increased pain over his left lower back and left shoulder lately He had some water problem in his basement a couple of months ago and was using a shop vac to clean up the water and was carrying the water bucket up and down the basement stairs repeatedly to get rid of the water as he does not have a sink in the basement and thinks that this likely led to his current back issues Thinks that his left shoulder pain is likely from exercising too much and states that he has backed off on his exercises lately while his shoulder is still bothering him States that he feels okay otherwise He denies any headaches or dizziness Denies any chest pains, no shortness of breath No nausea/vomiting, no abdominal pain States that he still takes some OTC laxatives at night to help regulate his bowel movements when needed Denies any acute urinary symptoms He is also still taking some low dose edible marijuana at night sometimes to help him sleep He has not been able to get his labs done yet - will try to get them done tomorrow Had his screening colonoscopy done back in 2016; will be due for repeat colonoscopy in 10 years (2026) [facility] Medical History Overweight (BMI 25.0-29.9) Hematuria, microscopic Constipation Pure hypercholesterolemia Surgical History History of inguinal hernia repair History of colonoscopy History of hand surgery Family History Father Substance use disorder Mother Hypertension Social History Housing: House Alcohol intake: former Patient Tobacco Use Status: Former Tobacco user e-Cigarette/Vaping Use: Never Used Second Hand Smoke Exposure: Yes service: No Current occupational status: employed Cognitive needs: No Hearing needs: No Vision needs: Yes (Reading glasses) Questionnaire PHQ-9 Over the last 2 weeks, how often have you been bothered by any of the following problems? 1. Little interest or pleasure in doing things: not at all 2. Feeling down, depressed, or hopeless: not at all 3. Trouble falling or staying asleep, or sleeping too much: not at all 4. Feeling tired or having little energy: not at all 5. Poor appetite or overeating: not at all 6. Feeling bad about yourself - or that you are a failure or have let yourself or your family down: not at all 7. Trouble concentrating on things, such as reading the newspaper or watching television: not at all 8. Moving or speaking so slowly that other people could have noticed. Or the opposite - being so fidgety or restless that you have been moving around a lot more than usual: not at all 9. Thoughts that you would be better off or of hurting yourself in some way: not at all Total score: 0 Depression Screening Interpretation: Negative Depression Screening Done: Yes 11844 - PHQ-9 Billing: Yes Source: Developed by Drs. Isidoro Schuler, Lynn Galarza, Swapnil Bates and colleagues, with an educational polina from [employer]. Thrive Questionnaire Date Thrive assessed: 10/11/23 I am a: Patient What is your living situation today?: I have a steady place to live Within the past 12 months, did the food you bought not last and you didn't have the money to get more?: Never true Within the past 12 months, did you worry whether your food would run out before you got money to buy more?: Never true Do you have trouble paying for medicines?: No Do you have trouble getting transportation to medical appointments?: No Do you have trouble paying your heating and electricity bill?: No Do you have trouble taking care of your child, family member or friend?: No Do you have trouble with day-to-day activities such as bathing, preparing meals, shopping, managing finances, etc.?: No Are you currently unemployed and looking for a job?: No Are you interested in more education?: No Currently or been in a relationship where the following occur: no concerns reported THRIVE Score: 0 AUDIT C Alcohol Use Questionnaire (AUDIT-C) 1. How often do you have a drink containing alcohol?: Never Total Score: 0 Score Reviewed/Action Taken: Yes GATO-7 AMB Questionnaire GATO-7 Date GATO - 7 assessed: 10/11/23 Feeling nervous, anxious, or on edge: 0 = Not at all Not being able to stop or control worryin = Not at all Worrying too much about different things: 0 = Not at all Trouble relaxin = Not at all Being so restless that it is hard to sit still: 0 = Not at all Becoming easily annoyed or irritable: 0 = Not at all Feeling afraid as if something awful might happen: 0 = Not at all Total GATO-7 score (0-4 normal; 5-9 mild; 10-14 moderate; 15-21 severe): 0 Source: Developed by Drs. Isidoro Schuler, Lynn Galarza, Swapnil Bates and colleagues, with an educational polina from [employer]. Review of Systems Const Denies chills, Denies fatigue, Denies fever(s), Denies headache(s), Denies malaise and Denies weakness Eyes Denies blurry vision, Denies change in vision, Denies irritation and Denies itchy eyes ENT Denies dysphagia, Denies dizziness, Denies otalgia, Denies headache(s), Denies nasal congestion, Denies neck pain, Denies odynophagia and Denies sore throat Card Denies chest pain, Denies rapid heart rate, Denies irregular heart rhythm, Denies palpitations and Denies dyspnea Resp Denies chest congestion, Denies cough, Denies dyspnea and Denies wheezing GI Denies abdominal pain, Denies bloating, Denies constipation, Denies dysphagia, Denies heartburn, Denies diarrhea, Denies nausea, Denies odynophagia and Denies vomiting Denies hematuria, Denies difficulty urinating, Denies dysuria, Denies urinary frequency and Denies urinary urgency Musc Reports back pain (over the left lower back), Reports arthralgias (left shoulder), Denies joint swelling, Denies muscle weakness and Denies neck pain Skin/Breast Denies change in pigmentation, Denies lesions, Denies rash and Denies unusual bruising Neuro Denies dizziness, Denies headache(s), Denies paresthesias and Denies weakness Endo Denies fatigue and Denies palpitations Aller/Immun Denies itchy eyes and Denies wheezing Physical exam (Primary Care) Vital Signs: Last Vital Signs Pulse 68 10/11/23 10:15 BP 120/72 10/11/23 10:15 Pulse Ox 95 10/11/23 10:15 Oxygen Delivery Method Room Air 10/11/23 10:15 BMI result Body Mass Index 25.6 Tobacco/Smoking Status: Tobacco use Status Tobacco use date assessed 10/11/23 10/11/23 10:19 Patient Tobacco Use Status Former Tobacco user 10/11/23 10:19 e-Cigarette/Vaping Use Never Used 10/11/23 10:19 PHQ-9: PHQ-9 Score PHQ-9: Total score 0 10/11/23 10:19 Depression Screening Interpretation: Negative Thrive Assessment: Date of Thrive Assessment Date Thrive assessed 10/11/23 10/11/23 10:19 Currently or been in a relationship where the following occur: no concerns reported Const General: no acute distress, alert and awake Orientation/consciousness: patient oriented x3 HENMT Head: Yes normocephalic and Yes atraumatic Ears: external ears normal, TM's normal bilaterally and EAC's normal General nose exam: No nasal discharge present Face and sinus: Yes normal facial exam and Yes sinuses nontender Teeth and gingiva: dentition normal Throat: Yes posterior oropharynx normal and Yes tonsils normal (no TP c ongestion) Eyes Eyelids: Yes eyelids normal Conjunctivae: conjunctivae normal Pupils: Equal, round and reactive pupils present EOM: EOMs intact bilaterally Neck Neck: Yes no lymphadenopathy and Yes supple Thyroid: Thyroid normal Resp Auscultation: clear to auscultation bilaterally, no rales and no wheezes Cardio Rate: regular rate Rhythm: regular rhythm Heart sounds: no murmurs GI Palpation (GI): Soft to palpation, nontender and No hepatosplenomegaly present Auscultation: normal bowel sounds General: Yes no CVA tenderness Back/Spine/Pelvis Back: no CVA tenderness Thoracic/Lumbar Spine: paraspinal muscle tenderness on the left in the lower lumbar and lumbar spinal tenderness Skin Lesions: no lesions Rashes: no rashes Neuro General: patient oriented x3, moves all extremities, no focal motor deficits and CN's II-XI intact bilaterally Cranial nerves: Yes Equal, round and reactive pupils present Cognition (Neuro): normal cognition Gait exam (Neuro): Normal gait present Extrem General: Yes no clubbing, cyanosis or edema Right upper extremity: shoulder/upper arm Details: normal ROM; no tenderness Assessment and Plan Assessment & Plan (1) Annual physical exam: Code(s): Z00.00 - Encounter for general adult medical examination without abnormal findings Plan: Check labs - states that he will go and get his previously ordered labs done tomorrow morning He is up-to-date with his cancer screening - will be due for repeat colonoscopy in 2026 (2) Pure hypercholesterolemia: Code(s): E78.00 - Pure hypercholesterolemia, unspecified Plan: Reinforced low cholesterol diet Will recheck his fasting lipids for follow up (3) Constipation: Code(s): K59.00 - Constipation, unspecified Qualifiers: Constipation type: unspecified constipation type Qualified Code(s): K59 .00 - Constipation, unspecified Plan: Controlled - states that he takes some OTC fiber supplements when needed Reinforced increased oral fluids and dietary fiber (4) Left shoulder pain: Code(s): M25.512 - Pain in left shoulder Qualifiers: Chronicity: unspecified Qualified Code(s): M25.512 - Pain in left shoulder Plan: Discussed that he likely has a rotator cuff strain as his exam today did not really show any concerning findings Will send him for x-rays of the left shoulder for further evaluation (5) Left low back pain: Code(s): M54.50 - Low back pain, unspecified Qualifiers: Chronicity: unspecified Sciatica presence: without sciatica Qualified Code(s): M54.50 - Low back pain, unspecified Plan: Is likely due to left lumbosacral strain Will send him for lumbar spine x-rays for further evaluation Discussed that if his x-rays come back normal or with no significant findings, can consider referring him to physical therapy for further management of his increased left lower back pain (6) Depression: Code(s): F32.A - Depression, unspecified Qualifiers: Depression Type: reactive depression Qualified Code(s): F32.9 - Major depressive disorder, single episode, unspecified Plan: Is mostly related to his granddaughter being diagnosed with a rare form of cancer and her poor response to treatment from last year States that he has been able to manage this and he does not need to be referred for counseling or start taking any Rx - he has a good support system with his family and friends Is again advised that he can call any time if he ever feels he needs help or would like to see or talk to somebody regarding this (7) Overweight (BMI 25.0-29.9): Code(s): E66.3 - Overweight Plan: Reinforced diet/exercise as tolerated/lose weight Plan To return in 1 year for his next annual physical examination Orders: Orders XR shoulder LT min 2V Today M25.512 - Pain in left shoulder XR lumbar spine 2-3V Today M54.50 - Low back pain, unspecified Coding Level of Care Code Est Pt Prev Care 40-64y([id number]) Diagnoses Annual physical exam Z00.00 Pure hypercholesterolemia E78.00 Constipation, unspecified constipation type K59.00 Constipation type: unspecified constipation type Left shoulder pain, unspecified chronicity M25.512 Chronicity: unspecified Left-sided low back pain without sciatica, unspecified chronicity M54.50 Chronicity: unspecified Sciatica presence: without sciatica Reactive depression F32.9 Depression Type: reactive depression Overweight (BMI 25.0-29.9) E66.3
[2023-10-11 10:15] VITALS: BP 120/72; PULSE 68; O2SAT 95; BMI 25.6
== END 2023-10-11 10:54 | disposition home or self-care (01) ==
PROVIDERS: PCP Internal Medicine; Visit Provider Internal Medicine
DX: Z00.00 Encounter for general adult medical examination without abnormal findings (principal); E78.00 Pure hypercholesterolemia, unspecified; K59.00 Constipation, unspecified; M25.512 Pain in left shoulder; M54.50 Low back pain, unspecified; F32.9 Major depressive disorder, single episode, unspecified; E66.3 Overweight
CPT/HCPCS: 99396

== ENCOUNTER 2023-10-12 06:02 | Outpatient (REF) | payer BC, SELFPAY ==
--- NOTE | ~2023-10-12 | XR_ITS ---
EXAMINATION: XR SHOULDER, LEFT CLINICAL INFORMATION: Left shoulder pain. COMPARISON: Pain. TECHNIQUE: Radiographs dated 10/17/2021. of the left shoulder. FINDINGS: Bony alignment and mineralization are normal. The glenohumeral joint is intact. The acromioclavicular and coracoclavicular intervals are normal. There is mild osteoarthritic change of the acromioclavicular joint. No fracture or dislocation is seen. There is no soft tissue calcification or foreign body. No left pneumothorax is seen. XR/XR shoulder LT min 2V IMPRESSION: 1. No fracture or dislocation is seen. 2. There is mild osteoarthritic change of the left acromioclavicular joint. EXAMINATION: XR LUMBOSACRAL SPINE CLINICAL INFORMATION: Lower back pain. COMPARISON: None available. TECHNIQUE: AP and lateral views of the lumbar spine and lateral view of the lumbosacral junction. FINDINGS: There is bony demineralization. There is a trace lumbar dextroscoliosis. The lumbar disc spaces are well-maintained. No acute fracture or spondylolisthesis is seen. There is multi-level marked lower thoracic and mild lumbar endplate arthropathy. The posterior elements are intact. There is facet arthropathy, most pronounced at L4-L5 and L5-S1. There are aortoiliac atherosclerotic calcifications. IMPRESSION: 1. No acute fracture or spondylolisthesis is seen. 2. The lumbar disc spaces are well-maintained. 3. There is facet arthropathy, most pronounced at L4-L5 and L5-S1. 4. There is multi-level thoracolumbar endplate arthropathy.
--- NOTE | ~2023-10-12 | XR_ITS ---
EXAMINATION: XR SHOULDER, LEFT CLINICAL INFORMATION: Left shoulder pain. COMPARISON: Pain. TECHNIQUE: Radiographs dated 10/17/2021. of the left shoulder. FINDINGS: Bony alignment and mineralization are normal. The glenohumeral joint is intact. The acromioclavicular and coracoclavicular intervals are normal. There is mild osteoarthritic change of the acromioclavicular joint. No fracture or dislocation is seen. There is no soft tissue calcification or foreign body. No left pneumothorax is seen. XR/XR lumbar spine 2-3V IMPRESSION: 1. No fracture or dislocation is seen. 2. There is mild osteoarthritic change of the left acromioclavicular joint. EXAMINATION: XR LUMBOSACRAL SPINE CLINICAL INFORMATION: Lower back pain. COMPARISON: None available. TECHNIQUE: AP and lateral views of the lumbar spine and lateral view of the lumbosacral junction. FINDINGS: There is bony demineralization. There is a trace lumbar dextroscoliosis. The lumbar disc spaces are well-maintained. No acute fracture or spondylolisthesis is seen. There is multi-level marked lower thoracic and mild lumbar endplate arthropathy. The posterior elements are intact. There is facet arthropathy, most pronounced at L4-L5 and L5-S1. There are aortoiliac atherosclerotic calcifications. IMPRESSION: 1. No acute fracture or spondylolisthesis is seen. 2. The lumbar disc spaces are well-maintained. 3. There is facet arthropathy, most pronounced at L4-L5 and L5-S1. 4. There is multi-level thoracolumbar endplate arthropathy.
[2023-10-12 06:23] LABS: MANUAL DIFF FLAG NO
[2023-10-12 07:40] LABS: Eosinophils Absolute Auto 0.1 X10*3/uL (0.0-0.4); Eosinophils Percent Auto 3.5 % (0-4); Hematocrit 45.4 % (42.0-52.0); Hemoglobin 15.8 g/dl (14.0-18.0); Imm Gran Abs Auto 0.01 X10*3/uL (0.00-0.03); Imm Gran Pct Auto 0.2 % (0.0-0.4); Lymphocytes Absolute Auto 0.8 X10*3/uL (1.2-4.9); Lymphocytes Percent Auto 20.7 % (20-40); Mean Corpuscular HGB Conc 34.8 g/dl (31.0-36.0); Mean Corpuscular Hemoglobin 31.1 pg (27.0-33.0); Mean Corpuscular Volume 89.4 fL (80.0-98.0); Mean Platelet Volume 10.3 fL (9.4-12.4); Monocytes Absolute Auto 0.5 X10*3/uL (0.1-1.2); Monocytes Percent Auto 13.1 % (2-11); Neutrophils Absolute Auto 2.5 x10*3/uL (2.0-8.3); Neutrophils Percent Auto 61.5 % (45-73); Platelet Count 209 X10*3/uL (160-400); Red Blood Count 5.08 X10*6/uL (4.60-5.80); Red Cell Distribution Width 12.4 % (11.0-16.0); White Blood Count 4.1 X10*3/uL (4.8-10.8)
[2023-10-12 07:53] LABS: Alanine Aminotransferase 26 U/L (0-40); Albumin Level 4.3 g/dL (3.5-5.0); Alkaline Phosphatase 71 U/L (39-117); Anion Gap 10 (12-20); Aspartate Amino Transferase 26 U/L (5-37); Bilirubin Total 0.6 mg/dL (0.0-1.0); Blood Urea Nitrogen 26 mg/dL (9-16); Calcium 9.4 mg/dL (8.4-10.2); Carbon Dioxide 26 mmol/L (22-29); Chloride 108 mmol/L (96-108); Cholesterol 193 mg/dL (<200); Estimated Glomerular Filt Rate > 60; Glucose Fasting 96 mg/dL (60-99); HDL Cholesterol 62 mg/dL (>40); LDL Cholesterol Calculated 118 mg/dL (<100); Potassium 4.3 mmol/L (3.3-5.1); Sodium 140 mmol/L (135-145); Total Protein 6.8 g/dL (6.5-8.0); Triglycerides 69 mg/dL (<150)
[2023-10-12 08:00] LABS: Appearance Urine Clear; Color Urine Yellow; Glucose Urine UA Negative (Negative); Leukocyte Esterase Urine Negative (Negative); Nitrite Urine Negative (Negative); PH 5.5 (5.0-9.0); Specific Gravity - Urine 1.025 (1.005-1.025); UMIC TRIGGER UACC YES; Urine Blood Trace (Negative); Urine Ketones Negative (Negative); Urine Protein Negative (Neg-Trace)
[2023-10-12 08:03] LABS: Bacteria Urine None Seen (None Seen); Hyaline Casts Urine 0-2 /LPF (0-2); RBC Urine 0-2 /HPF (0-2); Squamous Epithelial Cell Urine 0-2 /HPF (0-2); WBC Urine 0-5 /HPF (0-5)
[2023-10-12 08:13] LABS: Prostate Specific Antigen 0.66 ng/mL (<0.05-4.0); TSH reflex Free T4 1.03 uIU/mL (0.32-4.0); Vitamin D 25-OH Total 53.8 ng/mL (>30)
== END 2023-10-12 06:03 | disposition home or self-care (01) ==
LOC: HO.LAB 06:02
PROVIDERS: PCP Internal Medicine; Visit Provider Internal Medicine
DX: M25.512 Pain in left shoulder (principal); M54.50 Low back pain, unspecified; E78.00 Pure hypercholesterolemia, unspecified; N40.0 Benign prostatic hyperplasia without lower urinary tract symptoms; E55.9 Vitamin D deficiency, unspecified; Z00.00 Encounter for general adult medical examination without abnormal findings; Z12.5 Encounter for screening for malignant neoplasm of prostate
CPT/HCPCS: 36415; 72100; 73030; 80053; 80061; 81001; 81003; 82306; 84153; 84443; 85025

== ENCOUNTER 2024-10-14 10:15 | Outpatient (AMB) | payer BC, SELFPAY ==
[2024-10-14 10:16] VITALS: BP 112/70; PULSE 78; O2SAT 99; BMI 27.7
--- NOTE | 2024-10-14 10:16 | A.OFFPC_ITS ---
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 Accompanied by: Self / Same As Patient Allergies No Known Allergies Allergy (Verified 10/14/24 10:41) Medication List - Last Reconciled 10/14/24 by Ángel Ruano MD No Known Home Meds Tobacco use date assessed: 10/14/24 Dental Screening Dental Screen Date: 10/14/24 Did you have a dental visit in the last 12 months?: Yes Did you have a dental problem in the last 6 months where you did not have access to dental care?: No Was dental information given to patient?: Patient has dentist HPI Annual Exam HPI Details Patient comes in today for his annual physical examination States that he is still experiencing on and off left lower back pain 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 and thinks that this is at least a partial cause of his back symptoms He plans to retire in about 9 months and hopes that this will help him avoid aggravating his lower back further Adds that his grandchildren are all heavy and 'chunky' and his lower back also tends to hurt a lot when he has to carry them or pick them up States that he feels okay otherwise He denies any headaches or dizziness Denies any chest pains, no SOB No nausea/vomiting, no abdominal pain No change in bowel habits noted He denies any acute urinary symptoms He is up-to-date with his screening colonoscopy - is not due for repeat colonoscopy until 2026 [facility] Medical History (Updated 10/14/24 @ 11:33 by Ángel Ruano MD) Degenerative arthritis of left shoulder region Facet arthritis of lumbar region Overweight (BMI 25.0-29.9) Hematuria, microscopic Constipation Pure hypercholesterolemia Surgical History History of inguinal hernia repair History of colonoscopy History of hand surgery Family History Father Substance use disorder Mother Hypertension Social History Housing: House Alcohol intake: former Patient Tobacco Use Status: Former Tobacco user e-Cigarette/Vaping Use: Never Used Second Hand Smoke Exposure: Yes service: No Current occupational status: employed Cognitive needs: No Hearing needs: No Vision needs: Yes (Reading glasses) Questionnaire PHQ-9 Over the last 2 weeks, how often have you been bothered by any of the following problems? 1. Little interest or pleasure in doing things: not at all 2. Feeling down, depressed, or hopeless: not at all 3. Trouble falling or staying asleep, or sleeping too much: not at all 4. Feeling tired or having little energy: several days 5. Poor appetite or overeating: not at all 6. Feeling bad about yourself - or that you are a failure or have let yourself or your family down: not at all 7. Trouble concentrating on things, such as reading the newspaper or watching television: not at all 8. Moving or speaking so slowly that other people could have noticed. Or the opposite - being so fidgety or restless that you have been moving around a lot more than usual: not at all 9. Thoughts that you would be better off or of hurting yourself in some way: not at all Total score: 1 Depression Screening Interpretation: Negative Depression Screening Done: Yes [id number] - PHQ-9 Billing: Yes Source: Developed by Drs. Isidoro Schuler, Lynn Galarza, Swapnil Bates and colleagues, with an educational polina from [employer]. Thrive Questionnaire Date Thrive assessed: 10/14/24 I am a: Patient What is your living situation today?: I have a steady place to live Within the past 12 months, did the food you bought not last and you didn't have the money to get more?: Never true Within the past 12 months, did you worry whether your food would run out before you got money to buy more?: Never true Do you have trouble paying for medicines?: No Do you have trouble getting transportation to medical appointments?: No Do you have trouble paying your heating and electricity bill?: No Do you have trouble taking care of your child, family member or friend?: No Do you have trouble with day-to-day activities such as bathing, preparing meals, shopping, managing finances, etc.?: No Are you currently unemployed and looking for a job?: No Are you interested in more education?: No Please select the resources that you would like help with: None Currently or been in a relationship where the following occur: No concerns reported THRIVE Score: 0 AUDIT C Alcohol Use Questionnaire (AUDIT-C) 1. How often do you have a drink containing alcohol?: Never 3. How often do you have six or more drinks on one occasion?: Never Total Score: 0 Score Reviewed/Action Taken: Yes GATO-7 AMB Questionnaire GATO-7 Date GATO - 7 assessed: 10/14/24 Feeling nervous, anxious, or on edge: 0 = Not at all Not being able to stop or control worryin = Not at all Worrying too much about different things: 0 = Not at all Trouble relaxin = Not at all Being so restless that it is hard to sit still: 0 = Not at all Becoming easily annoyed or irritable: 0 = Not at all Feeling afraid as if something awful might happen: 0 = Not at all Total GATO-7 score (0-4 normal; 5-9 mild; 10-14 moderate; 15-21 severe): 0 Source: Developed by Drs. Isidoro Schuler, Lynn Galarza, Swapnil Bates and colleagues, with an educational polina from [employer]. Review of Systems Const Denies chills, Denies fatigue, Denies fever(s), Denies headache(s), Denies malaise and Denies weakness Eyes Denies blurry vision, Denies change in vision, Denies irritation and Denies itchy eyes ENT Denies dysphagia, Denies dizziness, Denies otalgia, Denies headache(s), Denies nasal congestion, Denies neck pain, Denies odynophagia and Denies sore throat Card Denies chest pain, Denies rapid heart rate, Denies irregular heart rhythm, Denies palpitations and Denies dyspnea Resp Denies chest congestion, Denies cough, Denies dyspnea and Denies wheezing GI Denies abdominal pain, Denies bloating, Denies constipation, Denies dysphagia, Denies heartburn, Denies diarrhea, Denies nausea, Denies odynophagia and Denies vomiting Denies hematuria, Denies difficulty urinating, Denies dysuria, Denies urinary frequency and Denies urinary urgency Musc Reports back pain (on and off over the left lower back), Denies arthralgias, Denies joint swelling, Denies muscle weakness and Denies neck pain Skin/Breast Denies change in pigmentation, Denies lesions, Denies rash and Denies unusual bruising Neuro Denies dizziness, Denies headache(s), Denies paresthesias and Denies weakness Endo Denies fatigue and Denies palpitations Aller/Immun Denies itchy eyes and Denies wheezing Physical exam (Primary Care) Vital Signs: Last Vital Signs Pulse 78 10/14/24 10:16 BP 112/70 10/14/24 10:16 Pulse Ox 99 10/14/24 10:16 Oxygen Delivery Method Room Air 10/14/24 10:16 BMI result Body Mass Index 27.7 Tobacco/Smoking Status: Tobacco use Status Tobacco use date assessed 10/14/24 10/14/24 10:21 Patient Tobacco Use Status Former Tobacco user 10/14/24 10:21 e-Cigarette/Vaping Use Never Used 10/14/24 10:21 PHQ-9: PHQ-9 Score PHQ-9: Total score 1 10/14/24 10:21 Depression Screening Interpretation: Negative Thrive Assessment: Date of Thrive Assessment Date Thrive assessed 10/14/24 10/14/24 10:21 Currently or been in a relationship where the following occur: No concerns reported Const General: no acute distress, alert and awake Orientation/consciousness: patient oriented x3 HENMT Head: Yes normocephalic and Yes atraumatic Ears: external ears normal, TM's normal bilaterally and EAC's normal General nose exam: No nasal discharge present Face and sinus: Yes normal facial exam and Yes sinuses nontender Teeth and gingiva: dentition normal Throat: Yes posterior oropharynx normal and Yes tonsils normal (no TP congestion) Eyes Eyelids: Yes eyelids normal Conjunctivae: conjunctivae normal Pupils: Equal, round and reactive pupils present EOM: EOMs intact bilaterally Neck Neck: Yes supple and No lymphadenopathy Thyroid: Thyroid normal Resp Auscultation: clear to auscultation bilaterally, no rales and no wheezes Cardio Rate: regular rate Rhythm: regular rhythm Heart sounds: no murmurs GI Palpation (GI): Soft to palpation, nontender and No hepatosplenomegaly present Auscultation: normal bowel sounds General: Yes no CVA tenderness Back/Spine/Pelvis Back: no CVA tenderness Thoracic/Lumbar Spine: paraspinal muscle tenderness on the left (mild) in the mid lumbar and in the lower lumbar and lumbar spinal tenderness (mild) Skin Lesions: no lesions Rashes: no rashes Neuro General: patient oriented x3, moves all extremities, no focal motor deficits and CN's II-XI intact bilaterally Cranial nerves: Yes Equal, round and reactive pupils present Cognition (Neuro): normal cognition Gait exam (Neuro): Normal gait present Extrem General: Yes no clubbing, cyanosis or edema Coding Level of Care Code Est Pt Prev Care 40-64y(19864) Diagnoses Annual physical exam Z00.00 Pure hypercholesterolemia E78.00 Constipation, unspecified constipation type K59.00 Constipation type: unspecified constipation type Facet arthritis of lumbar region M47.816 Primary osteoarthritis of left shoulder M19.012 Osteoarthritis type: primary Overweight (BMI 25.0-29.9) E66.3 Additional Codes PHQ-9 - 41413 - PHQ-9 Billing: Yes ([id number]) Assessment & Plan Assessment & Plan (1) Annual physical exam: Code(s): Z00.00 - Encounter for general adult medical examination without abnormal findings Category: Medical Plan: Check labs He is up-to-date with his screening colonoscopy and is not due for repeat until 2026 (2) Pure hypercholesterolemia: Code(s): E78.00 - Pure hypercholesterolemia, unspecified Category: Medical Plan: Reinforced low cholesterol diet His cholesterol levels were elevated back in 2021 but they have gradually improved since with diet modification Will recheck his fasting lipids for follow up (3) Constipation: Code(s): K59.00 - Constipation, unspecified Category: Medical Qualifiers: Constipation type: unspecified constipation type Qualified Code(s): K59.00 - Constipation, unspecified Plan: Controlled - patient states that he takes some OTC fiber supplements when needed Reinforced increased oral fluids and dietary fiber (4) Facet arthritis of lumbar region: Code(s): M47.816 - Spondylosis without myelopathy or radiculopathy, lumbar region Category: Medical Plan: X-rays of the lumbar spine done last year (09/2023) revealed (+) facet arthropathy, most pronounced at L4-L5 and L5-S1 and multi-level thoracolumbar endplate arthropathy. There are no acute fracture or spondylolisthesis seen and the lumbar disc spaces are well-maintained He is advised that his recurrent left lower back pain is most likely muscular in etiology and related to what he does at work on a regular basis Reinforced activity and weight-lifting restrictions to avoid aggravating his lower back (5) Degenerative arthritis of left shoulder region: Code(s): M19.012 - Primary osteoarthritis, left shoulder Category: Medical Qualifiers: Osteoarthritis type: primary Qualified Code(s): M19.012 - Primary osteoarthritis, left shoulder Plan: Left shoulder x-rays done in September 2023 revealed (+) mild osteoarthritic changes of the left acromioclavicular joint, with no fracture or dislocation seen Patient states that his shoulder has not been bothering him too much lately Can consider referring him to orthopedics if his shoulder symptoms progress (6) Overweight (BMI 25.0-29.9): Code(s): E66.3 - Overweight Category: Medical Plan: Reinforced diet/exercise as tolerated/lose weight Plan To return in 1 year for his next annual physical examination Orders: Orders Complete Blood Count Auto Diff Today D64.9 - Anemia, unspecified, Z00.00 - Encounter for general adult medical examination without abnormal findings TSH reflex Free T4 Today E78.00 - Pure hypercholesterolemia, unspecified, Z00.00 - Encounter for general adult medical examination without abnormal findings Vitamin D 25-OH Total Today E55.9 - Vitamin D deficiency, unspecified, Z00.00 - Encounter for general adult medical examination without abnormal findings Prostate Specific Antigen Today N40.0 - Benign prostatic hyperplasia without lower urinary tract symptoms, Z00.00 - Encounter for general adult medical examination without abnormal findings Comprehensive [place]. Panel Fast Today E78.00 - Pure hypercholesterolemia, unspecified, Z00.00 - Encounter for general adult medical examination without abnormal findings Lipid Panel Today E78.00 - Pure hypercholesterolemia, unspecified, Z00.00 - Encounter for general adult medical examination without abnormal findings UA CC w/rflx Micro + Cult Today R30.0 - Dysuria, Z00.00 - Encounter for general adult medical examination without abnormal findings Vitamin B12 and Folate Today E53.8 - Deficiency of other specified B group vitamins, Z00.00 - Encounter for general adult medical examination without abnormal findings
== END 2024-10-14 11:00 | disposition home or self-care (01) ==
LOC: HO.HMCH 10:16
PROVIDERS: PCP Internal Medicine; Visit Provider Internal Medicine
DX: Z00.00 Encounter for general adult medical examination without abnormal findings (principal); E78.00 Pure hypercholesterolemia, unspecified; K59.00 Constipation, unspecified; M47.816 Spondylosis without myelopathy or radiculopathy, lumbar region; M19.012 Primary osteoarthritis, left shoulder; E66.3 Overweight

== ENCOUNTER → 2024-10-14 10:15 | Outpatient (BNVA) | payer BC, SELFPAY | PROVIDERS: PCP Internal Medicine; Visit Provider Internal Medicine | DX: Z00.00 Encounter for general adult medical examination without abnormal findings (principal); E78.00 Pure hypercholesterolemia, unspecified; K59.00 Constipation, unspecified; M47.816 Spondylosis without myelopathy or radiculopathy, lumbar region; M19.012 Primary osteoarthritis, left shoulder; E66.3 Overweight; Z68.27 Body mass index [BMI] 27.0-27.9, adult | CPT/HCPCS: 96127 ==

== ENCOUNTER 2024-10-17 06:08 | Outpatient (REF) | payer BC, SELFPAY ==
[2024-10-17 06:27] LABS: MANUAL DIFF FLAG NO
[2024-10-17 07:42] LABS: Basophils Percent Auto 0.7 % (0-2); Eosinophils Absolute Auto 0.1 X10*3/uL (0.0-0.4); Eosinophils Percent Auto 2.9 % (0-4); Hematocrit 46.6 % (42.0-52.0); Hemoglobin 16.3 g/dl (14.0-18.0); Lymphocytes Percent Auto 24.6 % (20-40); Mean Corpuscular Hemoglobin 31.5 pg (27.0-33.0); Mean Platelet Volume 10.3 fL (9.4-12.4); Monocytes Absolute Auto 0.5 X10*3/uL (0.1-1.2); Monocytes Percent Auto 12.9 % (2-11); Neutrophils Absolute Auto 2.5 x10*3/uL (2.0-8.3); Neutrophils Percent Auto 58.9 % (45-73); Platelet Count 206 X10*3/uL (160-400); Red Blood Count 5.18 X10*6/uL (4.60-5.80); Red Cell Distribution Width 12.5 % (11.0-16.0); White Blood Count 4.2 X10*3/uL (4.8-10.8)
[2024-10-17 07:54] LABS: Appearance Urine Clear; Color Urine Yellow; Glucose Urine UA Negative (Negative); Leukocyte Esterase Urine Negative (Negative); Nitrite Urine Negative (Negative); Specific Gravity - Urine 1.025 (1.005-1.025); Urine Blood Negative (Negative); Urine Ketones Negative (Negative); Urine Protein Negative (Neg-Trace)
[2024-10-17 08:25] LABS: Alanine Aminotransferase 34 U/L (0-40); Albumin Level 4.4 g/dL (3.5-5.0); Alkaline Phosphatase 63 U/L (39-117); Anion Gap 9 (12-20); Aspartate Amino Transferase 27 U/L (5-37); Bilirubin Total 0.6 mg/dL (0.0-1.0); Blood Urea Nitrogen 23 mg/dL (9-16); Calcium 9.1 mg/dL (8.4-10.2); Carbon Dioxide 26 mmol/L (22-29); Chloride 110 mmol/L (96-108); Cholesterol 210 mg/dL (<200); Estimated Glomerular Filt Rate > 60; Glucose Fasting 94 mg/dL (60-99); HDL Cholesterol 62 mg/dL (>40); LDL Cholesterol Calculated 132 mg/dL (<100); Potassium 4.2 mmol/L (3.3-5.1); Sodium 141 mmol/L (135-145); Total Protein 6.6 g/dL (6.5-8.0); Triglycerides 80 mg/dL (<150)
[2024-10-17 08:45] LABS: TSH reflex Free T4 0.99 uIU/mL (0.32-4.0); Vitamin D 25-OH Total 43.3 ng/mL (>30)
[2024-10-17 08:54] LABS: Folate 10.8 ng/mL (> or = 4.0); Prostate Specific Antigen 0.54 ng/mL (<0.05-4.0); Vitamin B12 517 pg/mL (200-900)
== END 2024-10-17 06:09 | disposition home or self-care (01) ==
LOC: HO.LAB 06:08
PROVIDERS: PCP Internal Medicine; Visit Provider Internal Medicine
DX: Z00.00 Encounter for general adult medical examination without abnormal findings (principal); N40.0 Benign prostatic hyperplasia without lower urinary tract symptoms; R30.0 Dysuria; E78.00 Pure hypercholesterolemia, unspecified; E55.9 Vitamin D deficiency, unspecified; E53.8 Deficiency of other specified B group vitamins; D64.9 Anemia, unspecified; Z12.5 Encounter for screening for malignant neoplasm of prostate
CPT/HCPCS: 36415; 80053; 80061; 81003; 82306; 82607; 82746; 84153; 84443; 85025

== ENCOUNTER 2024-11-04 15:04 | Outpatient (AMB) | payer OTHER, SELFPAY ==
--- NOTE | 2024-11-04 15:25 | MHC.OFFWIV ---
Intake Vital Signs 11/04/24 15:26 Weight 164 lb BP 112/70 Blood Pressure Location Lt brachial Position Sitting Pulse 63 Pulse Source Pulse Oximeter Pulse Oximetry (%) 98 Oxygen Delivery Method Room Air Intake Visit Reasons: EP Twisted lt knee, swelling, painful (WC) Intake Note: Patient here for twisted left knee, pain and swelling. Patient Tobacco Use Status: Former Tobacco user Allergies No Known Allergies Allergy (Verified 11/04/24 15:27) Do you need a note to return to daycare/school/sports/work: Yes HPI HPI Comments History of Present Illness Details This is a 59-year-old male who works for the [employer] in [place] presenting for evaluation of left knee pain. 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 Patient did not fall as a result of this injury however is complaining of an aching pain in his left medial knee. Patient has not taken any medication for treatment of his discomfort. [facility] Medical History (Updated 11/04/24 @ 15:59 by Josselyn King PA-C) Degenerative arthritis of left shoulder region Facet arthritis of lumbar region Overweight (BMI 25.0-29.9) Hematuria, microscopic Constipation Pure hypercholesterolemia Surgical History History of inguinal hernia repair History of colonoscopy History of hand surgery Family History Father Substance use disorder Mother Hypertension Social History Housing: House Alcohol intake: former Patient Tobacco Use Status: Former Tobacco user e-Cigarette/Vaping Use: Never Used Second Hand Smoke Exposure: Yes service: No Current occupational status: employed Cognitive needs: No Hearing needs: No Vision needs: Yes (Reading glasses) Review of Systems Const All systems reviewed & are unremarkable except as noted in HPI and below Eyes Reports no additional complaints ENT Reports no additional complaints Card Reports as per HPI Resp Reports as per HPI GI Reports as per HPI Reports no additional complaints Musc Reports no additional complaints, Reports arthralgias (left knee) and Denies limited range of motion Skin/Breast Reports system reviewed and no additional complaints, except as documented Neuro Reports no additional complaints Psych Reports no additional complaints Endo Reports no additional complaints Aller/Immun Reports no additional complaints Physical Exam Vital Signs: Last Vital Signs Pulse 63 11/04/24 15:26 BP 112/70 11/04/24 15:26 Pulse Ox 98 11/04/24 15:26 Oxygen Delivery Method Room Air 11/04/24 15:26 Const General: cooperative, healthy appearing, comfortable, no acute distress, well developed, alert, awake and Physically active Nutritional Appearance: average body habitus Orientation/consciousness: patient oriented x3 Limitations: no limitations Skin General skin exam: no rashes or lesions noted Neuro General: patient oriented x3 Extrem Left lower extremity: normal to inspection, full ROM, no joint enlargement and knee (v. minimal warmth to touch, ROM intact) Details: tenderness (medial left knee, no overt edema or ecchymosis); no edema Psych Appearance: grossly normal Mental Status: mental status grossly normal Insight: Good insight present (Psych) Judgement: Good judgement present (Psych) Assessment & Plan Assessment & Plan (1) Strain of left knee: Comment: Given this patient's history coupled with his examination, imaging is deferred at this time. Patient will obtain a new pain knee sleeve for compression and Naprosyn will be prescribed. Patient is instructed to use ice at 20 minute intervals throughout the afternoon and evening. Code(s): S86.912A - Strain of unspecified muscle(s) and tendon(s) at lower leg level, left leg, initial encounter Qualifiers: Encounter type: initial encounter Qualified Code(s): S86.912A - Strain of unspecified muscle(s) and tendon(s) at lower leg level, left leg, initial encounter Plan: Ice this afternoon and this evening as discussed, Naprosyn q.12 hours times 7-10 days, neoprene sleeve for compression, work note provided for 2 days. Medications: New naproxen (Naprosyn) 500 mg PO BID 20 tabs 0RF Coding Level of Care Code Est Pt Level 3 (10745) Diagnoses Strain of left knee, initial encounter S86.912A Encounter type: initial encounter Time Spent (min) 20
[2024-11-04 15:26] VITALS: BP 112/70; PULSE 63; O2SAT 98
== END 2024-11-04 16:09 | disposition home or self-care (01) ==
PROVIDERS: PCP Internal Medicine; Visit Provider Physician Assistant
DX: S86.912A Strain of unspecified muscle(s) and tendon(s) at lower leg level, left leg, initial encounter (principal)

== ENCOUNTER → 2024-11-04 15:04 | Outpatient (BNVA) | payer BC, SELFPAY | PROVIDERS: PCP Internal Medicine; Visit Provider Physician Assistant | DX: S86.912A Strain of unspecified muscle(s) and tendon(s) at lower leg level, left leg, initial encounter (principal); X50.1XXA Overexertion from prolonged static or awkward postures, initial encounter; Y93.9 Activity, unspecified; Y92.89 Other specified places as the place of occurrence of the external cause; Y99.0 Civilian activity done for income or pay | CPT/HCPCS: 99212 ==